=== PATIENT | female | born 1990 | race Caucasian/White ===

== ENCOUNTER 2020-05-22 19:57 | Outpatient (CLI) | payer MEDICAID ==
[2020-05-22 20:35] VITALS: BP 102/55
[2020-05-22] MEDS ORDERED: LACTATED RINGERS 1,000 ML IV ONE (21:36)
[2020-05-22] MEDS ORDERED: cefTRIAXone/NS 2 GM/100 ML 2 GM/100 ML BAG IV ONE (21:36)
[2020-05-22] MEDS ORDERED: ceFAZolin/Water 2 GM/20 ML 2 GM/20 ML SYRINGE IV ONE ×2 (22:11)
--- NOTE | 2020-05-23 10:25 | Anesthesia Day of Surgery ---
Anesthesia Day of Surgery - Day of Surgery Patient Examined: Yes Patient H&P Reviewed: Yes Patient is NPO: Yes Beta Blockers: No Cardiac Clearance: No Pulmonary Clearance: No Farhan's Test: N/A
== END 2020-05-23 00:03 | disposition home or self-care (01) ==
LOC: TRG 19:57 → APU 19:59 → TRG 05-23 00:03
PROVIDERS: ATTEND Obstetrics & Gynecology
DX: O62.9 Abnormality of forces of labor, unspecified (principal); Z3A.31 31 weeks gestation of pregnancy
CPT/HCPCS: 59025; 96361; 96374; J0690; J7120; 96360; 96365